=== PATIENT | male | born 1955 | race Caucasian/White ===

== ENCOUNTER 2017-04-02 18:47 | Emergency (ER) | payer OTHER ==
[~2017-04-02] VITALS: Ht 177.8 cm; Wt 102.1 kg
[2017-04-02] MEDS ORDERED: LOZARTAN (18:59)
[2017-04-02] MEDS ORDERED: METOPROLO (18:59)
--- NOTE | 2017-04-02 19:48 | NUR ---
Patient is in bed, comforable, no complaint of pain noted. No distress noted. Awaiting xray results. Will continue to monitor.
--- NOTE | 2017-04-02 22:47 | NUR ---
Patient discharged to home in stable conditon. Left knee immobilizer applied, CMS WNL. Written and verbal after care instructions given. Patient verbalizes understanding of instructions. Discharged via wheel chair, refused crutches, states has a pair in his house. Patient driven home by friend in private vehicle. All belongings with patient.
[2017-04-02 22:50] VITALS: BP 131/79
== END 2017-04-02 22:50 | disposition home or self-care (01) ==
LOC: ER 18:47
DX: S80.02XA Contusion of left knee, initial encounter (principal); I10 Essential (primary) hypertension; Z88.0 Allergy status to penicillin; W01.0XXA Fall on same level from slipping, tripping and stumbling without subsequent striking against object, initial encounter; Y93.89 Activity, other specified; Y99.8 Other external cause status; Y92.89 Other specified places as the place of occurrence of the external cause
CPT/HCPCS: 73562; 73700; A4663

== ENCOUNTER 2021-01-12 01:18 | Emergency (ER) | payer OTHER ==
[~2021-01-12] VITALS: Ht 177.8 cm; Wt 106.6 kg
[~2021-01-12 01:18] MED LIST: LOZARTAN; METOPROLO
--- NOTE | 2021-01-12 01:26 | NUR ---
Dr. Acuna at bedside for MSE.
[2021-01-12] MEDS ORDERED: LIDOCAINE 2% (UROJET) 10 ML JELLY MM ONE (01:36)
--- NOTE | 2021-01-12 01:53 | NUR ---
Indwelling santos catheter inserted, patient tolerated procedure well, 600 ml urine output, switched patient to leg bag with care instructions. Patient discharged to home in stable condition. Written and verbal after care instructions given. Patient verbalizes understanding of instructions. Stressed follow up or return to ER for worsening s/s. Patient out of ER with steady gait, no acute signs of distress, VSS, all belongings taken.
[2021-01-12 01:55] VITALS: BP 127/84
== END 2021-01-12 01:55 | disposition home or self-care (01) ==
LOC: ER 01:24
DX: R33.9 Retention of urine, unspecified (principal); C61 Malignant neoplasm of prostate; Z92.3 Personal history of irradiation; I10 Essential (primary) hypertension; Z87.01 Personal history of pneumonia (recurrent)
CPT/HCPCS: 51702; A4663

== ENCOUNTER 2021-01-24 03:26 | Emergency (ER) | payer OTHER ==
[~2021-01-24] VITALS: Ht 177.8 cm; Wt 104.3 kg
[2021-01-24] MEDS ORDERED: LIDOCAINE 2% (UROJET) 10 ML JELLY MM ONE ×2 (03:41→04:00)
[2021-01-24 04:47] LABS: *BILIRUBIN,URIN NEGATIVE (NEGATIVE); *BLOOD, URINE NEGATIVE (NEGATIVE); *CLARITY,URINE CLEAR (CLEAR); *COLOR,URINE YELLOW (YELLOW); *KETONES,URINE NEGATIVE (NEGATIVE); *UROBILINOGEN,URINE 0.2 E.U./dl (NORMAL); LEUKOCYTE ESTERASE ,URINE NEGATIVE (NEGATIVE); NITRITE, URINE NEGATIVE (NEGATIVE); UGLUCOSE NEGATIVE (NEGATIVE)
== END 2021-01-24 04:40 | disposition left against medical advice (07) ==
LOC: ER 03:27
DX: R33.8 Other retention of urine (principal); C61 Malignant neoplasm of prostate; Z88.0 Allergy status to penicillin; Z87.01 Personal history of pneumonia (recurrent); R00.0 Tachycardia, unspecified
CPT/HCPCS: 51702; A4663

== ENCOUNTER 2021-12-31 15:52 | Emergency (ER) | payer OTHER ==
[~2021-12-31] VITALS: Ht 177.8 cm; Wt 109.3 kg
[2021-12-31] MEDS ORDERED: ABIRATERONE (16:27)
[2021-12-31] MEDS ORDERED: PREDNISONE (16:27)
[2021-12-31] MEDS ORDERED: LOSARTAN (16:27)
[2021-12-31] MEDS ORDERED: PREGABALIN (16:27)
[2021-12-31 16:30] LABS: HEMATOCRIT 42.5 % (36.7-47.1); MEAN CORPUSCULAR HEMOGLOBIN 27.4 uug (23.8-33.4); PLATELET COUNT (AUTO) 273 K/uL (152-348)
[2021-12-31 16:40] LABS: CREATININE 0.7 mg/dL (0.6-1.3); POTASSIUM 3.8 mmol/L (3.5-5.1)
[2021-12-31 16:46] LABS: BILIRUBIN,TOTAL 0.6 mg/dL (0.2-1.0); TOTAL PROTEIN, SERUM 7.4 g/dL (6.4-8.2)
[2021-12-31] MEDS ORDERED: SWABABLE VALVE TRANSFER SET EA MC ONE (17:21)
[2021-12-31] MEDS ORDERED: IV NORMAL SALINE 250 ML IV ONE (17:21)
[2021-12-31] MEDS ORDERED: IOHEXOL 350 100 ML INFUS..BTL ONE (17:21)
--- NOTE | 2021-12-31 17:59 | NUR ---
Patient discharged to home in stable condition. Written and verbal after care instructions given. Patient verbalizes understanding of instructions. Stressed follow up or return to ER for worsening s/s.
[2021-12-31 18:08] VITALS: BP 130/81
== END 2021-12-31 18:09 | disposition home or self-care (01) ==
LOC: ER 15:54
DX: R07.9 Chest pain, unspecified (principal); R06.02 Shortness of breath; Z87.01 Personal history of pneumonia (recurrent); Z88.0 Allergy status to penicillin; Z88.2 Allergy status to sulfonamides; C79.9 Secondary malignant neoplasm of unspecified site; C61 Malignant neoplasm of prostate; J90 Pleural effusion, not elsewhere classified
CPT/HCPCS: 36415; 71045; 71275; 80053; 84484; 85025; 85610; 93005; 99285; Q9967; 70030-TC; A4663; J7050